=== PATIENT | male | born 1955 | race Caucasian/White ===

== ENCOUNTER 2016-11-02 16:15 | Emergency (ER) | payer BC ==
[~2016-11-02] VITALS: Ht 180.3 cm; Wt 111.1 kg
[2016-11-02 22:53] VITALS: BP 141/83
== END 2016-11-02 22:54 | disposition home or self-care (01) ==
LOC: EME 16:15 → RME 16:15
PROC: 0HQGXZZ Repair Left Hand Skin, External Approach (ICD-10-PCS; principal; 2016-11-02)
DX: S61.012A Laceration without foreign body of left thumb without damage to nail, initial encounter (principal); W45.8XXA Other foreign body or object entering through skin, initial encounter; M18.12 Unilateral primary osteoarthritis of first carpometacarpal joint, left hand
CPT/HCPCS: 73140; 99281; 99284